=== PATIENT | female | born 1955 | race Two or more races ===

== ENCOUNTER 2017-11-23 12:04 | Emergency (ER) | payer OTHER ==
[~2017-11-23] VITALS: Ht 170.2 cm; Wt 68.0 kg
[2017-11-23 12:04] VITALS: BP 130/82
[2017-11-23] MEDS ORDERED: ZOLOFT25 MG ORAL (12:30)
[2017-11-23] MEDS ORDERED: Bacitracin Oint UD TOPIC ONE (12:45)
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
[2017-11-23 15:38] LABS: EOSINOPHILS % (AUTO) 2.2 % (0.0-3.0); HEMATOCRIT 40.1 % (37.0-47.0); HEMOGLOBIN 13.4 G/DL (12.0-16.0); LYMPHOCYTES % (AUTO) 20.1 % (20.0-45.0); MEAN CORPUSCULAR VOLUME 84 FL (80-99); MONOCYTES % (AUTO) 9.4 % (1.0-10.0); NEUTROPHILS % (AUTO) 67.4 % (45.0-75.0); PLATELET COUNT 175 K/UL (150-450); RED BLOOD COUNT 4.77 M/UL (4.20-5.40); RED CELL DISTRIBUTION WIDTH 13.8 % (11.6-14.8); WHITE BLOOD COUNT 7.6 K/UL (4.8-10.8)
[2017-11-23 15:42] LABS: ANION GAP 10 mmol/L (5-15); BLOOD UREA NITROGEN 21 mg/dL (7-18); CALCIUM 8.2 MG/DL (8.5-10.1); CARBON DIOXIDE 26 MMOL/L (21-32); CHLORIDE 108 MMOL/L (98-107); CREATININE 0.7 MG/DL (0.55-1.30); POTASSIUM 3.9 MMOL/L (3.5-5.1); SODIUM 144 MMOL/L (136-145)
[2017-11-23 15:46] LABS: ALANINE AMINOTRANSFERASE 16 U/L (12-78); ALBUMIN 3.2 G/DL (3.4-5.0); ALKALINE PHOSPHATASE 102 U/L (46-116); ASPARTATE AMINO TRANSFERASE 13 U/L (15-37); BILIRUBIN,TOTAL 0.2 MG/DL (0.2-1.0)
[2017-11-23 16:00] VITALS: BP 143/77
[2017-11-23 19:35] VITALS: BP 140/84
[2017-11-23 22:05] VITALS: BP 143/79
[2017-11-24] VITALS (8 sets, daily range): BP systolic 128–148; BP diastolic 78–88
[2017-11-24] MEDS ORDERED: LORazepam 1mg tab ORAL ONE (07:30)
--- NOTE | 2017-11-24 21:46 | Consultation ---
History of Present Illness General Date patient seen: Nov 24, 2017 Chief Complaint: Behavioral Complaint Present Illness HPI 62-year-old female presents to the emergency department on 5150 hold and dts s/ p suicide attempt. Patient states that she attempted to cut her left wrist with a knife. the pt stated that she is tired of being homeless and wanted to end her life. the pt stated that if we find her placement she would not hurt herself. the pt didnt endorse any psychotic sxs Allergies: Coded Allergies: AMPICILLIN (Verified Allergy, Unknown, 11/23/17) ASPIRIN (Verified Allergy, Unknown, 11/23/17) Medication History Scheduled Sertraline Hcl* (Zoloft*), 25 MG ORAL DAILY, (Reported) Patient History Limited by: medical condition History Provided By: Patient, Medical Record, PMD Healthcare decision maker Resuscitation status Advanced Directive on File Review of Systems Psychiatric: Reports: prior hx, anxiety, depressed feelings, emotional problems Physical Exam General Appearance: no apparent distress, alert Neurologic: oriented x 3, responsive, normal mood/affect Last 24 Hour Vital Signs Date Time Temp Pulse Resp B/P (MAP) Pulse Ox O2 Delivery O2 Flow Rate FiO2 11/24/17 15:23 98.9 78 17 130/79 99 Room Air 98.9 11/24/17 14:50 98.9 78 17 130/79 99 Room Air 98.9 11/24/17 12:12 98.9 80 17 128/81 99 Room Air 98.9 11/24/17 10:06 67 16 140/85 98 Room Air 11/24/17 06:45 98.1 68 16 141/88 98 Room Air 98.1 11/24/17 05:55 98.0 69 15 148/86 96 Room Air 98.0 11/24/17 03:05 67 15 145/82 98 Room Air 11/24/17 00:05 67 12 135/78 97 Room Air 11/23/17 23:57 98.0 11/23/17 22:58 98.1 11/23/17 22:05 74 16 143/79 99 Room Air Intake and Output 11/23/17 11/24/17 19:00 07:00 Intake Total 60 ml Balance 60 ml Intake Oral 60 ml Height (Feet): 5 Height (Inches): 7.00 Weight (Pounds): 150 Assessment/Plan Status: stable Assessment/Plan schizophrenia by hx the pt is not at imminent dts/dto the pt will be placed the pt 5150 will be discontinued Dar Rivas M.D. Nov 24, 2017 21:46
[2017-11-25] MEDS ORDERED: ZOLOFT100 MG ORAL (19:52)
[2017-11-25] MEDS ORDERED: RISPERDAL2 MG ORAL (19:52)
== END 2017-11-24 15:25 | disposition home or self-care (01) ==
LOC: EDBD 12:04 → EMR 13:00
DX: F91.9 Conduct disorder, unspecified (principal); S61.512A Laceration without foreign body of left wrist, initial encounter; X78.1XXA Intentional self-harm by knife, initial encounter; Y92.9 Unspecified place or not applicable; F32.9 Major depressive disorder, single episode, unspecified; Z59.0 Homelessness; Z88.6 Allergy status to analgesic agent; Z88.0 Allergy status to penicillin
CPT/HCPCS: 36415; 80053; 80307; 80329; 85025; 85610; 99284

== ENCOUNTER 2017-11-28 19:35 | Emergency (ER) | payer OTHER ==
[~2017-11-28] VITALS: Ht 170.2 cm; Wt 68.0 kg
[~2017-11-28 19:35] MED LIST: RISPERDAL2 MG ORAL; ZOLOFT100 MG ORAL; ZOLOFT25 MG ORAL
[2017-11-28 19:40] VITALS: BP 141/75
--- NOTE | 2017-11-28 19:51 | Emergency Room Report ---
History of Present Illness General Chief Complaint: Overdose Source: Patient, EMS (Niki Moise M.D.) Present Illness HPI 62-year-old female, history of depression, here for a sertraline overdose Patient was seen in our emergency room twice in the past week, patient was seen by psychiatry, said that she does not want to commit suicide if she has a place to live. Patient had allegedly overdosed on sertraline 2 days ago, she was admitted to the hospital for one day, stabilized and then discharged yesterday. Patient states that she went home today, and then ingested another 14 pills of sertraline. States that she wants to commit suicide. (Niki Moise M.D.) Allergies: Coded Allergies: AMPICILLIN (Verified Allergy, Unknown, 11/23/17) ASPIRIN (Verified Allergy, Unknown, 11/23/17) Patient History Past Medical History: see triage record Past Surgical History: none Pertinent Family History: none Now: No Reviewed Nursing Documentation: PMH: Agreed; PSxH: Agreed (Niki Moise M.D. ) Nursing Documentation-PMH Past Medical History: No History, Except For Hx Cardiac Problems: No Hx Cancer: No Hx Gastrointestinal Problems: No History Of Psychiatric Problem: Yes - Depression Hx Neurological Problems: No (Niki Moise M.D.) Review of Systems All Other Systems: negative except mentioned in HPI (Niki Moise M.D.) Physical Exam Vital Signs Date Time Temp Pulse Resp B/P (MAP) Pulse Ox O2 Delivery O2 Flow Rate FiO2 11/28/17 19:37 98.5 80 16 141/75 99 Room Air 98.4 Sp02 EP Interpretation: reviewed, normal General Appearance: other - Flat affect, however cooperative Head: normocephalic, atraumatic Eyes: bilateral eye normal inspection, bilateral eye PERRL, bilateral eye EOMI ENT: normal ENT inspection, normal pharynx, normal voice, moist mucus membranes Neck: normal inspection, full range of motion, supple Respiratory: normal inspection, lungs clear, normal breath sounds, no respiratory distress, no retraction, no wheezing, speaking full sentences, chest symmetrical Cardiovascular #1: normal inspection, regular rate, rhythm, no edema, normal capillary refill Cardiovascular #2: 2+ radial (R), 2+ radial (L) Gastrointestinal: normal inspection, non tender, soft, non-distended, no guarding Musculoskeletal: normal inspection, back normal, normal range of motion, non- tender Neurologic: normal inspection, alert, oriented x3, responsive, motor strength/ tone normal, sensory intact, normal gait, speech normal Psychiatric: depressed affect, other - si Skin: normal inspection, normal color, no rash, warm/dry, well hydrated, normal turgor (Niki Moise M.D.) Medical Decision Making Diagnostic Impression: Primary Impression: Drug overdose Qualified Codes: T50.904A - Poisoning by unspecified drugs, medicaments and biological substances, undetermined, initial encounter Additional Impression: Depression Qualified Codes: F33.2 - Major depressive disorder, recurrent severe without psychotic features ER Course 62-year-old female with sertraline overdose DDX: Sertraline overdose with suicidal ideation just recently discharged from the hospital yesterday Plan: Obtain labs, ua, EKG ER course: Patient has been monitored during ED stay, HD stable no tachycardia, n/v, abd pain VS remain normal and stable no signs of serotonin syndome. no seizures Signed out patient to 62-year-old female with reported sertraline overdose. She was just discharged from the hospital yesterday for the same thing. Patient is not on a hold Observe patient in ed, possible psych eval versus discharge if no longer reporting suicidal ideation Please note that this Emergency Department Report was dictated using [employer] driver technology software, occasionally this can lead to erroneous entry secondary to interpretation by the dictation equipment. EKG Diagnostic Results EP Interpretation: Yes Rate: normal Rhythm: NSR ST Segments: No acute changes ASA given to patient: No Rhythm Strip EP Interpretation: Yes Rate: 85 Rhythm: NSR, no PVCs, no ectopy (Niki Moise M.D.) ER Course Patient signout to me. Supposedly she overdosed on sertraline. No evidence of any anti-cholinergic toxicity. Patient is not suicidal or homicidal. We'll discharge home. Labs unremarkable. (RAFAELA SHAH M.D.) Last Vital Signs Date Time Temp Pulse Resp B/P (MAP) Pulse Ox O2 Delivery O2 Flow Rate FiO2 11/28/17 19:37 98.5 80 16 141/75 99 Room Air 98.4 (Niki Moise M.D.) Status: improved (RAFAELA SHAH M.D.) Disposition: HOME, SELF-CARE Condition: Stable Patient Instructions: OVERDOSE, Intentional (Adult) Additional Instructions: Abstain from drugs and alcohol. Follow-up with mental health as scheduled. Follow-up your DrRocio in 7 days. Return if worse. Niki Moise M.D. Nov 28, 2017 19:51 RAFAELA SHAH M.D. Nov 28, 2017 21:18
[2017-11-28 20:00] LABS: EOSINOPHILS % (AUTO) 5.1 % (0.0-3.0); HEMATOCRIT 37.7 % (37.0-47.0); HEMOGLOBIN 12.5 G/DL (12.0-16.0); LYMPHOCYTES % (AUTO) 24.2 % (20.0-45.0); MEAN CORPUSCULAR VOLUME 85 FL (80-99); MONOCYTES % (AUTO) 12.4 % (1.0-10.0); NEUTROPHILS % (AUTO) 57.3 % (45.0-75.0); PLATELET COUNT 138 K/UL (150-450); RED BLOOD COUNT 4.44 M/UL (4.20-5.40); RED CELL DISTRIBUTION WIDTH 13.9 % (11.6-14.8); WHITE BLOOD COUNT 5.9 K/UL (4.8-10.8)
[2017-11-28 20:16] LABS: ANION GAP 9 mmol/L (5-15); BLOOD UREA NITROGEN 20 mg/dL (7-18); CARBON DIOXIDE 27 MMOL/L (21-32); CHLORIDE 106 MMOL/L (98-107); CREATININE 0.9 MG/DL (0.55-1.30); SODIUM 142 MMOL/L (136-145)
[2017-11-28 20:20] LABS: ALANINE AMINOTRANSFERASE 20 U/L (12-78); ALBUMIN 3.2 G/DL (3.4-5.0); ALKALINE PHOSPHATASE 96 U/L (46-116); ASPARTATE AMINO TRANSFERASE 13 U/L (15-37); BILIRUBIN,TOTAL 0.2 MG/DL (0.2-1.0)
[2017-11-28 20:51] LABS: APPEARANCE,URINE CLEAR; BILIRUBIN, URINE NEGATIVE (NEGATIVE); COLOR,URINE PALE YELLOW; GLUCOSE, URINE (UA) NEGATIVE (NEGATIVE); KETONES,URINE NEGATIVE (NEGATIVE); LEUKOCYTE ESTERASE ,URINE 1+ (NEGATIVE); NITRITE,URINE NEGATIVE (NEGATIVE); PH,URINE 6 (4.5-8.0); PROTEIN,URINE NEGATIVE (NEGATIVE); UROBILINOGEN,URINE NORMAL MG/DL (0.0-1.0)
[2017-11-28 21:40] VITALS: BP 132/69
[2017-11-28 22:50] VITALS: BP 133/68
== END 2017-11-28 22:50 | disposition home or self-care (01) ==
LOC: EDBD 19:35 → EMR 20:00
DX: T43.222A Poisoning by selective serotonin reuptake inhibitors, intentional self-harm, initial encounter (principal); F32.9 Major depressive disorder, single episode, unspecified
CPT/HCPCS: 36415; 80053; 80307; 80329; 81003; 85025; 93005; 99284